=== PATIENT | male | born 1975 | race Caucasian/White ===

== ENCOUNTER 2022-07-22 18:41 | Emergency (ER) | payer SELFPAY ==
[~2022-07-22] VITALS: Ht 163.8 cm; Wt 91.4 kg
[2022-07-22 18:55] VITALS: BP 171/100
[2022-07-22] MEDS ORDERED: KETOROLAC 30 MG/ML VIAL IM ONE (19:25)
[2022-07-22] MEDS ORDERED: TRAM50TA3 PO (19:49)
[2022-07-22] MEDS ORDERED: DICL2SOL TP (19:49)
[2022-07-22 20:10] VITALS: BP 145/98
== END 2022-07-22 20:10 | disposition home or self-care (01) ==
LOC: MED 18:41
DX: G89.29 Other chronic pain (principal); M25.512 Pain in left shoulder; R03.0 Elevated blood-pressure reading, without diagnosis of hypertension; Z79.899 Other long term (current) drug therapy; Z79.891 Long term (current) use of opiate analgesic
CPT/HCPCS: 73030; 96372; 99283; J1885